=== PATIENT | male | born 1950 | race Caucasian/White ===

== ENCOUNTER → 2018-12-23 09:06 | Outpatient (CLI) | payer MEDICARE, SELFPAY ==
[2018-12-23 10:36] LABS: HEMOLYSIS < 15 (0-50)
[2018-12-23 10:37] LABS: Add Manual Diff / Slide Review NO; Basophils Absolute Auto 0 /uL (0-100); Basophils Percent Auto 0.5 % (0-2); Eosinophils Absolute Auto 100 /uL (0-450); Hematocrit 46.1 % (41-53); Hemoglobin 15.6 g/dL (13.5-17.5); Lymphocytes Absolute Auto 2000 /uL (1100-4500); Lymphocytes Percent Auto 32.2 % (25-40); Mean Corpuscular HGB Conc 33.8 % (30-36); Mean Corpuscular Hemoglobin 33.7 PG (26-34); Mean Corpuscular Volume 99.5 fL (80-100); Monocytes Absolute Auto 700 /uL (0-900); Monocytes Percent Auto 10.6 % (3-14); Neutrophils Absolute Auto 3400 /uL (1500-7000); Neutrophils Percent Auto 54.7 % (50-75); Platelet Count 212 X10^3/uL (150-400); Red Blood Cell Count 4.63 X10^6/uL (4.5-5.9); Red Cell Distribution Width 14.1 % (11.6-14.8); White Blood Cell Count 6.2 X10^3/uL (4.5-11.0)
[2018-12-23 10:45] LABS: Alanine Aminotransferase 35 IU/L (21-72); Albumin 4.3 g/dL (3.5-5.0); Albumin Globulin Ratio 1.5 (1.0-2.8); Alkaline Phosphatase 77 U/L (38-126); Aspartate Aminotransferase 30 IU/L (17-59); BUN Creatinine Ratio 21.7 (6-22); Bilirubin Total 0.8 mg/dL (0.2-1.3); Blood Urea Nitrogen 13 mg/dL (9-20); Calcium 9.2 mg/dL (8.4-10.2); Carbon Dioxide 28 mmol/L (22-32); Chloride 103 mmol/L (98-107); Cholesterol 254 mg/dL (140-199); Estimated Glomerular Filt Rate > 60.0 mL/min (>60); Globulin 2.9 g/dL (1.7-4.1); Glucose 112 mg/dL (80-110); HDL Cholesterol 46 mg/dL (40-60); LDL Cholesterol Calculated 157 mg/dL (<100); Sodium 140 mmol/L (137-145); Total Protein 7.2 g/dL (6.3-8.2); Triglycerides 254 mg/dL (35-150)
[2018-12-23 11:13] LABS: Thyroid Stimulating Hormone 3.25 uIU/mL (0.47-4.68)
[2018-12-23 11:17] LABS: Prostate Specific Antigen 0.724 ng/mL (0.10-4.00)
[2018-12-23 11:48] LABS: Folate 11.8 ng/mL (2.76-20.0); Vitamin B12 351 pg/mL (239-931)
== END ==
PROVIDERS: Family Provider Internal Medicine; PCP Physician Assistant; Visit Provider Internal Medicine
DX: N40.0 Benign prostatic hyperplasia without lower urinary tract symptoms (principal); R51 Headache; R53.83 Other fatigue; R07.9 Chest pain, unspecified; Z87.448 Personal history of other diseases of urinary system
CPT/HCPCS: 36415; 80053; 80061; 82607; 82746; 84153; 84443; 85025

== ENCOUNTER → 2019-01-10 15:46 | Outpatient (CLI) | payer MEDICARE, SELFPAY ==
--- NOTE | 2019-01-10 | DI.MRI.S_ITS ---
PROCEDURE: MR HEAD/BRAIN WO CON INDICATIONS: Headache TECHNIQUE: Noncontrast axial T1 spin echo, axial T2 fast spin echo, sagittal and axial FLAIR, coronal T2 fast spin echo, axial gradient echo, axial diffusion and ADC through the brain. COMPARISON: None. FINDINGS: Image quality: Excellent. CSF Spaces: Basal cisterns are patent. No extra-axial fluid collections. Ventricles are normal in size and shape. Brain: No intracranial masses or hemorrhage. Brown/white matter interface is normal. Brainstem appears normal. Diffusion-weighted images demonstrate no acute ischemic insult. No chronic ischemic insults. Normal intravascular flow voids are present. Skull and face: Calvarium has normal marrow signal. Orbits appear normal. Sinuses: Sinuses and mastoids are clear. IMPRESSION: No source of headache is found. No stroke or mass is identified, no prior intracranial hemorrhage is found. Dictated by: Keaton Chávez M.D. on 01/10/2019 at 16:30 Approved by: Keaton Chávez M.D. on 01/10/2019 at 16:31
== END ==
PROVIDERS: PCP Internal Medicine; Visit Provider Internal Medicine
DX: R51 Headache (principal)
CPT/HCPCS: 70551

== ENCOUNTER → 2020-02-23 07:49 | Outpatient (CLI) | payer MEDICARE, SELFPAY ==
--- NOTE | 2020-02-23 | DI.ECHO.S_ITS ---
[facility] +---------+ [facility] +---------+ : : [address] : [place] : : : : [id number] : : : : Phone: [phone]---------+ Echocardiogram Report + + :Name: NIRMAL RICHARDSON Study Date: 02/23/2020 Height: 68 in : :[facility] Exam Location: IS Weight: 210 lb : : Gender: Male BSA: 2.1 m2 : :: 1950 Age: 69 yrs BP: 143/90 mmHg: :Reason For Study: Cardiomyopathy : :Ordering Physician: Dr. Kelly : :[place] Performed By: Brittany Page : + + Interpretation Summary 1) Normal left ventricular size, thickness, wall motion, and systolic function (EF 60-65%). 2) Normal right ventricular size and function. 3) No significant valvular abnormalities. 4) The aortic root is mildly dilated at 4.3cm. 5) No prior Echo available for comparison. Procedure: A two-dimensional transthoracic echocardiogram with color flow and Doppler was performed. The study quality was technically adequate. There is no prior echocardiogram noted for this patient. The heart rate ranged between 70-78 bpm during the study. Left Ventricle: The left ventricle appears normal in size, wall thickness, and systolic function without any focal wall motion abnormalities. The ejection fraction is estimated to be 60-65%. Right Ventricle: The right ventricle is normal in size and function. Atria: The left atrium is moderately dilated. Right atrial size is normal. There is no Doppler evidence for an interatrial shunt. Mitral Valve: The mitral valve is normal in structure and function. There is trace mitral regurgitation. Aortic Valve: The aortic valve is trileaflet. The aortic valve opens well. There is no aortic valve stenosis. There is trace aortic regurgitation. Tricuspid Valve: The tricuspid valve is normal in structure and function. There is a trace or physiologic amount of tricuspid regurgitation. Pulmonary artery pressures cannot be estimated because of the lack of a measurable TR jet velocity. Pulmonic Valve: The pulmonic valve is not well seen, but is grossly normal. There is a trace or physiologic amount of pulmonic regurgitation. Great Vessels: The aortic root is mildly dilated. The ascending aorta is at the upper limits of normal in size. The pulmonary artery is not well visualized, but is probably normal size. The IVC is of normal diameter and collapses greater than 50% with a sniff. This suggests a low right atrial pressure of 3 mm Hg. Pericardium/ Pleura There is no pericardial effusion. There is no pleural effusion. MMode/2D Measurements & Calculations LVIDd: 5.2 cm LVOT diam: 2.2 cm LVIDs: 3.3 cm Ao root diam: 4.3 cm FS: 37.7 % asc Aorta Diam: 4.0 cm EPSS: 0.36 cm IVSd: 1.00 cm LVPWd: 0.96 cm LV sher. diameter/BSA (cm/m^2): 2.5 LV sys. diameter/BSA (cm/m^2): 1.6 LA A2 area: 30.5 cm2 RA long axis: 6.1 cm LA A4 area: 23.7 cm2 RA area: 21.0 cm2 LA length (vol): 6.4 cm RA vol: 61.5 ml LA vol: 95.8 ml RA : 29.4 ml/m2 LA vol index: 45.9 ml/m2 TAPSE: 2.2 cm Doppler Measurements & Calculations Ao V2 max: 173.4 cm/sec LVOT Max Elie: 109.4 cm/sec Ao V2 mean: 118.0 cm/sec LV V1 max P.8 mmHg Ao max P.0 mmHg LV V1 VTI: 23.7 cm Ao mean P.2 mmHg BEVERLEY(I,D): 2.8 cm2 Ao V2 VTI: 32.9 cm BEVERLEY(V,D): 2.4 cm2 sev ratio: 0.72 BEVERLEY indexed to BSA (cm^2/m^2): 1.3 MV E max elie: 67.4 cm/sec PA V2 max: 85.3 cm/sec MV A max elie: 84.8 cm/sec PA V2 mean: 56.8 cm/sec MV E/A: 0.79 PA mean P.5 mmHg Med Peak E' Elie: 5.6 cm/sec PA Accel Time: 0.12 sec E/E' med: 12.0 Lat Peak E' Elie: 6.7 cm/sec E/E' lat: 10.0 E/e' average: 11.0 MV dec time: 0.29 sec SV([facility]): 91.7 ml Reading Physician:10:31 AM
[2020-02-23 09:02] LABS: Add Manual Diff / Slide Review NO; Basophils Absolute Auto 0 /uL (0-100); Basophils Percent Auto 0.5 % (0-2); Eosinophils Absolute Auto 100 /uL (0-450); Eosinophils Percent Auto 1.8 % (2-4); Hematocrit 45.9 % (41-53); Hemoglobin 15.3 g/dL (13.5-17.5); Lymphocytes Absolute Auto 2000 /uL (1100-4500); Mean Corpuscular HGB Conc 33.4 % (30-36); Mean Corpuscular Hemoglobin 33.5 PG (26-34); Mean Corpuscular Volume 100.3 fL (80-100); Monocytes Absolute Auto 700 /uL (0-900); Monocytes Percent Auto 9.4 % (3-14); Neutrophils Absolute Auto 4400 /uL (1500-7000); Neutrophils Percent Auto 60.3 % (50-75); Platelet Count 223 X10^3/uL (150-400); Red Blood Cell Count 4.57 X10^6/uL (4.5-5.9); Red Cell Distribution Width 13.7 % (11.6-14.8); White Blood Cell Count 7.3 X10^3/uL (4.5-11.0)
[2020-02-23 09:09] LABS: Alanine Aminotransferase 38 IU/L (<50); Albumin 4.2 g/dL (3.5-5.0); Albumin Globulin Ratio 1.4 (1.0-2.8); Alkaline Phosphatase 93 U/L (38-126); Aspartate Aminotransferase 35 IU/L (17-59); BUN Creatinine Ratio 28.8 (6-22); Bilirubin Total 0.3 mg/dL (0.2-1.3); Blood Urea Nitrogen 21 mg/dL (9-20); C-Reactive Protein Quant 0.6 mg/dL (<1.0); Calcium 9.3 mg/dL (8.4-10.2); Carbon Dioxide 27 mmol/L (22-32); Chloride 107 mmol/L (98-107); Estimated Glomerular Filt Rate > 60.0 mL/min (>60); Globulin 2.9 g/dL (1.7-4.1); Glucose 98 mg/dL (80-110); HEMOLYSIS 18 (0-50); Sodium 140 mmol/L (137-145); Total Protein 7.1 g/dL (6.3-8.2)
[2020-02-23 09:32] LABS: Erythrocyte Sedimentation Rate 3 MM/HR (0-15)
== END ==
PROVIDERS: PCP Internal Medicine; Referring Provider Internal Medicine; Visit Provider Internal Medicine
DX: I42.9 Cardiomyopathy, unspecified (principal); M31.6 Other giant cell arteritis; I77.810 Thoracic aortic ectasia
CPT/HCPCS: 36415; 80053; 85025; 85651; 86140; 93306

== ENCOUNTER → 2020-02-26 08:02 | Outpatient (CLI) | payer MEDICARE, SELFPAY ==
--- NOTE | 2020-02-26 | DI.US.S_ITS ---
PROCEDURE: US CAROTID DOPPLER BI INDICATIONS: Occlusion and stenosis of unspecified carotid collette TECHNIQUE: Color and pulse Doppler interrogation was performed of both carotid systems, with image documentation and velocity measurements. COMPARISON: [facility], MR, MR HEAD/BRAIN WO CON, 01/10/2019, 16:02. FINDINGS: Stenosis calculations are based on SRU (Society of Radiologists in Ultrasound) criteria. Right side: Brachial blood pressure: 147/93 mm Hg. Common carotid artery peak systolic velocity: 73 cm/sec. Internal carotid artery peak systolic velocity: 67 cm/sec. Internal carotid artery end diastolic velocity: 17 cm/sec. External carotid artery peak systolic velocity: 97 cm/sec. ICA/CCA peak systolic ratio: 0.9 . Brown scale imaging description: Mild soft plaque Percent internal carotid artery stenosis: Less than 50% stenosis . Vertebral artery: Flow direction is not well seen. Left side: Brachial blood pressure: 147/92 mm Hg. Common carotid artery peak systolic velocity: 93 cm/sec. Internal carotid artery peak systolic velocity: 73 cm/sec. Internal carotid artery end diastolic velocity: 29 cm/sec. External carotid artery peak systolic velocity: 110 cm/sec. ICA/CCA peak systolic ratio: 0.8 . Brown scale imaging description: Mild soft plaque Percent internal carotid artery stenosis: Less than 50% stenosis . Vertebral artery: Flow direction is antegrade. IMPRESSION: Less than 50% stenosis within the internal carotid arteries bilaterally. The right vertebral artery was poorly visualized, the left vertebral artery is well seen and shows flow antegrade in direction. Review of prior brain MRI shows the right vertebral artery small in size when compared to that on the left, a normal anatomic variant. Dictated by: Keaton Chávez M.D. on 02/26/2020 at 10:33 Approved by: Keaton Chávez M.D. on 02/26/2020 at 10:37
== END ==
PROVIDERS: PCP Internal Medicine; Referring Provider Internal Medicine; Visit Provider Internal Medicine
DX: I65.23 Occlusion and stenosis of bilateral carotid arteries (principal)
CPT/HCPCS: 93880

== ENCOUNTER → 2020-02-27 20:07 | Outpatient (ROUT) | payer MEDICARE, SELFPAY ==
[2020-02-27 21:16] LABS: Cholesterol 179 mg/dL (140-199); HDL Cholesterol 44 mg/dL (40-60); LDL Cholesterol Calculated 115 mg/dL (<100); Triglycerides 101 mg/dL (35-150)
[2020-02-27 21:45] LABS: Prostate Specific Antigen 0.564 ng/mL (0.10-4.00)
== END ==
PROVIDERS: PCP Internal Medicine; Visit Provider Internal Medicine
DX: E78.2 Mixed hyperlipidemia (principal); N40.1 Benign prostatic hyperplasia with lower urinary tract symptoms
CPT/HCPCS: 80061; 84153

== ENCOUNTER → 2020-06-05 10:02 | Outpatient (CLI) | payer MEDICARE, SELFPAY ==
[2020-06-05] MEDS: COVID-19 VACC #1, MRNA(MOD) 100 MCG/0.5 ML VIAL IM (10:08)
== END ==
PROVIDERS: PCP Internal Medicine; Visit Provider Internal Medicine
DX: Z23 Encounter for immunization (principal)
CPT/HCPCS: 0011A; 91301

== ENCOUNTER → 2020-07-03 10:38 | Outpatient (CLI) | payer MEDICARE, SELFPAY ==
[2020-07-03] MEDS: COVID-19 VACC #2, MRNA(MOD) 100 MCG/0.5 ML VIAL IM (10:51)
== END ==
PROVIDERS: PCP Internal Medicine; Visit Provider Internal Medicine
DX: Z23 Encounter for immunization (principal)
CPT/HCPCS: 0012A; 91301

== ENCOUNTER → 2020-08-27 18:54 | Outpatient (ROUT) | payer MEDICARE, SELFPAY ==
[2020-08-27 19:31] LABS: Aspartate Aminotransferase 32 IU/L (17-59); BUN Creatinine Ratio 23.9 (6-22); Blood Urea Nitrogen 16 mg/dL (9-20); Calcium 9.7 mg/dL (8.4-10.2); Carbon Dioxide 29 mmol/L (22-32); Chloride 105 mmol/L (98-107); Cholesterol 163 mg/dL (140-199); Estimated Glomerular Filt Rate > 60.0 mL/min (>60); Glucose 84 mg/dL (80-110); HDL Cholesterol 53 mg/dL (40-60); HEMOLYSIS < 15 (0-50); LDL Cholesterol Calculated 78 mg/dL (<100); Potassium 4.4 mmol/L (3.4-5.1); Sodium 141 mmol/L (137-145); Triglycerides 160 mg/dL (35-150)
== END ==
PROVIDERS: PCP Internal Medicine; Visit Provider Internal Medicine
DX: E78.2 Mixed hyperlipidemia (principal)
CPT/HCPCS: 80048; 80061; 84450

== ENCOUNTER → 2023-11-01 11:28 | Outpatient (CLI) | payer MEDICARE, SELFPAY ==
--- NOTE | 2023-11-01 11:30 | DI.RAD.S_ITS ---
PROCEDURE: XR CERVICAL SPINE 4V OR 5V INDICATIONS: NECK PAIN TECHNIQUE: 6 views of the cervical spine acquired. COMPARISON: None. FINDINGS: Bones: No fractures or dislocations to the C7 level. Straightening of the normal cervical lordosis. There are multilevel degenerative changes of the cervical spine with facet and uncovertebral arthropathy, disc height loss with degenerative endplate changes and spurring. Oblique images demonstrate bony foraminal stenoses involving the upper cervical spine. Soft tissues: No prevertebral soft tissue swelling. IMPRESSION: Moderate to severe multilevel degenerative changes of the cervical spine. Dictated by: Yazan Rodriguez M.D. on 11/01/2023 at 14:34 Approved by: Yazan Rodriguez M.D. on 11/01/2023 at 14:35
== END ==
PROVIDERS: PCP Internal Medicine; Referring Provider Anesthesiology; Visit Provider Anesthesiology
DX: M47.812 Spondylosis without myelopathy or radiculopathy, cervical region (principal); M54.2 Cervicalgia
CPT/HCPCS: 72050; 99214